=== PATIENT | female | born 1935 | race Caucasian/White ===

== ENCOUNTER 2023-07-23 11:58 | Observation (INO) | payer OTHER ==
[~2023-07-23] VITALS: Ht 165.1 cm; Wt 67.9 kg
[~2023-07-23 11:58] MED LIST: ACET-2247 PO; HYDR25 PO; METO25 PO
[2023-07-23] MEDS: 0.9%NACL 1000ML 1,000 ML IV SCH (15:19)
[2023-07-23] MEDS ORDERED: OXYC5TAB3 PO (16:16)
[2023-07-23] MEDS ORDERED: AMLO-257 PO (16:16)
[2023-07-23] MEDS ORDERED: TRIA454O TP (16:16)
[2023-07-23] MEDS ORDERED: METO50TA18 PO (16:16)
[2023-07-23] MEDS ORDERED: MULT-1367 PO (16:16)
[2023-07-23] MEDS ORDERED: NAPR-1023 PO (16:16)
[2023-07-23] MEDS ORDERED: METH4TAB3 PO (16:16)
[2023-07-23] MEDS ORDERED: [UNRECOGNIZED DRUG - CODE] PO (16:16)
[2023-07-23] MEDS ORDERED: FE F1CAP8 PO (16:16)
[2023-07-23] MEDS ORDERED: NAPROXEN 500 MG TABLET PO PRN (21:30)
[2023-07-23] MEDS ORDERED: ACETAMINOPHEN 325 MG TAB PO PRN (21:30)
[2023-07-23] MEDS ORDERED: OXYCODONE HCL 5 MG TAB PO PRN (21:30)
[2023-07-23] MEDS ORDERED: METHYLPREDNISOLONE 4 MG PO SCH (21:30)
[2023-07-23] MEDS: METOPROLOL TARTRATE 50 MG TAB PO ONE (21:45)
[2023-07-23] MEDS: AMLODIPINE 5 MG TAB PO ONE (21:45)
[2023-07-24] VITALS (7 sets, daily range): BP systolic 139–176; BP diastolic 59–109; PULSE 59–78; RESP 17–20; O2SAT 95
[2023-07-24 04:48] LABS: BASOPHILS # (AUTO) 0.02 K/uL (0.00-0.20); BASOPHILS % (AUTO) 0.6 % (0.0-5.0); HEMATOCRIT 33.4 % (36-48); IMMATURE GRANULOCYTE ABSOLUTE 0.02 K/uL (0-1); LYMPHOCYTES # (AUTO) 0.7 K/uL (1.0-4.8); LYMPHOCYTES % (AUTO) 21.3 % (21.0-51.0); MEAN CORPUSCULAR HEMOGLOBIN 29.9 pg (27.0-33.0); MEAN CORPUSCULAR HGB CONC 31.7 g/dL (32.0-36.0); MEAN CORPUSCULAR VOLUME 94.4 fL (79-99); MONOCYTES # (AUTO) 0.5 K/uL (0.1-1.0); MONOCYTES % (AUTO) 14.4 % (3.0-13.0); NEUTROPHILS # (AUTO) 1.9 K/uL (1.8-7.7); NEUTROPHILS % (AUTO) 57.1 % (40.0-77.0); PLATELET COUNT (AUTO) 201 K/uL (130-400); RED BLOOD CELL COUNT(AUTO) 3.54 MIL/uL (4.00-5.50); RED CELL DISTRIBUTION WIDTH 14.8 % (11.0-15.5); WHITE BLOOD COUNT (AUTO) 3.3 K/uL (4.8-10.8)
[2023-07-24 08:29] LABS: ALBUMIN 3.2 g/dL (3.5-5.0); BILIRUBIN,TOTAL 0.3 mg/dL (0.2-1.0); CREATININE 1.4 mg/dL (0.5-1.0); POTASSIUM 4.1 mmol/L (3.5-5.1); TOTAL PROTEIN, SERUM 6.9 g/dL (6.0-8.3)
[2023-07-24] MEDS: [UNRECOGNIZED DRUG - OTHER] PO SCH (09:00)
[2023-07-24] MEDS: HOME MEDICATION 1 EACH PO SCH (09:00)
[2023-07-24] MEDS: FE FUMARATE/FA/MV, MIN COMB#15 1 TAB PO SCH ×2 (09:13→09:18)
[2023-07-24] MEDS: METOPROLOL TARTRATE 25 MG TAB PO SCH (09:13)
[2023-07-24] MEDS: HYDRALAZINE 25MG TABLET PO SCH (09:13)
[2023-07-24] MEDS: SOLU-MEDROL 125MG VIAL IVP PRN (09:16)
[2023-07-24] MEDS: DiphenhydrAMINE HCL 50 MG/ML VIAL IV PRN (09:16)
[2023-07-24] MEDS: TRIAMCINOLONE ACETONIDE TP SCH (09:46)
[2023-07-24] MEDS ORDERED: IOHEXOL-350 75 ML VIAL IV ONE (13:32)
[2023-07-24] MEDS ORDERED: IOHEXOL-350 50ML VIAL IV ONE (14:26)
[2023-07-24] MEDS: AMLODIPINE 5 MG TAB PO SCH (22:03)
[2023-07-25 00:37] VITALS: BP 134/78; PULSE 59; RESP 18
[2023-07-25 04:19] VITALS: BP 145/82; PULSE 65; RESP 18
[2023-07-25 08:00] VITALS: BP 146/73; PULSE 73; RESP 18
[2023-07-25] MEDS: MULTIVITAMIN TABLET PO SCH (09:56)
[2023-07-25 10:05] VITALS: O2SAT 97
[2023-07-25 12:00] VITALS: BP 130/75; PULSE 71; RESP 18
== END 2023-07-25 15:30 | disposition home or self-care (01) ==
LOC: EDH 11:58 → INTOOBSV 12:43 → EDHIP 12:43 → 4DH 07-24 04:04
PROVIDERS: ADMIT Internal Medicine Hematology & Oncology; ATTEND Internal Medicine Hematology & Oncology
DX: R07.89 Other chest pain (principal); I25.10 Atherosclerotic heart disease of native coronary artery without angina pectoris; C50.911 Malignant neoplasm of unspecified site of right female breast; C50.912 Malignant neoplasm of unspecified site of left female breast; C78.7 Secondary malignant neoplasm of liver and intrahepatic bile duct; M54.9 Dorsalgia, unspecified; I25.2 Old myocardial infarction; I48.91 Unspecified atrial fibrillation; I10 Essential (primary) hypertension; Z86.73 Personal history of transient ischemic attack (TIA), and cerebral infarction without residual deficits; Z95.0 Presence of cardiac pacemaker; Z90.13 Acquired absence of bilateral breasts and nipples
CPT/HCPCS: 96361 ×3; 99284; 84484 ×3; 71045; 93005 ×2; 96374; 96375; 80053; 85025; 36415; 71270; 93306; J1200; J2930; Q9967 ×2; G0378 ×5